=== PATIENT | female | born 1960 | race Two or more races ===

== ENCOUNTER 2023-01-15 12:56 | Inpatient (IN) | payer MEDICAID ==
[~2023-01-15] VITALS: Ht 167.6 cm; Wt 56.7 kg
[2023-01-15 13:10] VITALS: O2SAT 99
[2023-01-15 14:48] LABS: BASOPHILS % 0.3 % (0.0-2.0); EOSINOPHILS % 0.5 % (0.0-5.0); HEMATOCRIT. 38.3 % (36.0-48.0); HEMOGLOBIN. 12.2 g/dL (12.0-16.0); LYMPHOCYTES % 23.3 % (20.0-50.0); MEAN CORPUSCULAR HEMOGLOBIN 27.7 pg (28.0-32.0); MEAN CORPUSCULAR HGB CONC 31.8 g/dL (31.0-37.0); MEAN CORPUSCULAR VOLUME 87.2 fL (81.0-99.0); MEAN PLATELET VOLUME 7.6 fl (7.4-10.4); MONOCYTES % 9.2 % (2.0-8.0); NEUTROPHILS % 66.7 % (40.0-76.0); PLATELET 240 x1000/uL (130-400); RED BLOOD CELL COUNT 4.39 mill/uL (4.2-5.4); RED CELL DISTRIBUTION WIDTH 24.3 % (11.6-14.6); WHITE BLOOD COUNT 7.1 x1000/uL (4.5-11.0)
[2023-01-15 14:51] LABS: ADD RBC MORPHOLOGY YES; DIFFERENTIAL COMMENT 1
[2023-01-15 15:08] LABS: INDEX HEMOLYSI 1 (1-3); INDEX ICTERIC 1 (1-4); INDEX LIPEMIC 1 (1-3)
[2023-01-15 15:10] LABS: CHLORIDE 121 mEq/L (98-107); POTASSIUM 3.7 mEq/L (3.5-5.1); SODIUM 144 mEq/L (136-145)
[2023-01-15 15:23] LABS: ANISOCYTOSIS 4+; PLATELET ESTIMATE NORMAL
[2023-01-15 15:31] LABS: *AMPHETAMINES SCREEN URINE NEGATIVE (NEGATIVE); *BARBITURATES SCREEN URINE NEGATIVE (NEGATIVE); *BENZODIAZEPINES SCREEN URINE NEGATIVE (NEGATIVE); *COCAINE SCREEN URINE NEGATIVE (NEGATIVE); CANNABINOID URINE SCREEN NEGATIVE (NEGATIVE); ECSTASY MDMA SCREEN URINE NEGATIVE (NEGATIVE); OPIATES URINE SCREEN NEGATIVE (NEGATIVE); PHENCYCLIDINE URINE SCREEN NEGATIVE (NEGATIVE)
[2023-01-15 15:42] LABS: ACETAMINOPHEN < 2 ug/mL (10-30); ALANINE AMINOTRANSFERASE 15 IU/L (13-61); ALBUMIN 3.3 g/dL (3.4-5.0); ASPARTATE AMINOTRANSFERASE 13 IU/L (15-37); BILIRUBIN TOTAL 0.2 mg/dL (0.1-1.0); CALCIUM 9.4 mg/dL (8.5-10.1); CARBON DIOXIDE 19 mEq/L (21-32); CREATININE 0.6 mg/dL (0.6-1.3); ETHANOL BLOOD < 10 mg/dL (<10); GLUCOSE 103 mg/dL (70-105); PROTEIN TOTAL 6.3 g/dL (6.0-8.3); UREA NITROGEN BLOOD 16 mg/dL (7-21)
[2023-01-15 16:03] LABS: METHADONE URINE SCREEN INVALID (NEGATIVE)
[2023-01-15] MEDS ORDERED: SODIUM CHLORIDE 0.9% 1,000 ML IV ONE (16:45)
[2023-01-15 16:56] LABS: BG BASE EXCESS -4.7 mmol/L (-2.0-2.0); BG CARBOXYHEMOGLOBIN 0.7 % (0.5-1.5); BG DEOXYHEMOGLOBIN 1.9 % (0.0-5.0); BG HCO3 ACT 16.9 mmol/L (22.0-26.0); BG OXYGEN SATURATION 98.1 % (92.0-98.5); BG OXYHEMOGLOBIN 97.4 % (94.0-97.0); BG PCO2 22.9 mmHg (35.0-45.0); BG PH 7.487 (7.350-7.450); BG PO2 99.9 mmHg (75.0-100.0); BG SAMPLE SITE RIGHT BRACHIAL; BG TOTAL HEMOGLOBIN 12.2 g/dL (12.0-18.0); BG VENT MODE ROOM AIR
[2023-01-15] MEDS ORDERED: ONDANSETRON HCL 4MG/2ML INJ IV PRN (18:30)
[2023-01-15] MEDS ORDERED: IPRATROPIUM/ALBUTEROL 0.5-3(2.5)MG/3ML NEB HHN PRN (18:30)
[2023-01-15] MEDS ORDERED: MAGNESIUM/ALUMINUM HYDROXIDE/SIMETHICONE 30ML UDC PO PRN (18:30)
[2023-01-15] MEDS ORDERED: GUAIFENESIN 200MG/10ML SUGAR FREE UDC PO PRN (18:30)
[2023-01-15] MEDS ORDERED: DEXT 5%/0.45% NACL 1000ML 1,000 ML IV ONE (18:30)
[2023-01-15] MEDS ORDERED: DOCUSATE SODIUM 100MG CAPSULE PO PRN (18:30)
[2023-01-15] MEDS ORDERED: CLONIDINE 0.1MG TABLET PO PRN (18:30)
[2023-01-15] MEDS ORDERED: ACETAMINOPHEN 325MG TABLET PO PRN (18:30)
[2023-01-15] MEDS: PANTOPRAZOLE SODIUM 40 MG/VIAL IV SCH (19:00)
[2023-01-15] MEDS ORDERED: ENOXAPARIN 80MG/0.8ML SYR SUBCUT NR (19:00)
[2023-01-15 20:34] LABS: PROTHROMBIN TIME 11.2 sec (9.6-11.0)
[2023-01-15 20:45] LABS: TROPONIN I HIGH SENSITIVITY 5 ng/L (<54)
[2023-01-15] MEDS ORDERED: HALOPERIDOL LACTATE 5MG/ML VIAL IM NR (21:30)
[2023-01-15] MEDS: ENOXAPARIN 80MG/0.8ML SYR SUBCUT SCH (23:00)
[2023-01-16] VITALS (7 sets, daily range): BP systolic 95–139; BP diastolic 57–85; PULSE 76–83; RESP 16–19; TEMP 97.6–98.2
[2023-01-16 01:49] LABS: BG BASE EXCESS -4.9 mmol/L (-2.0-2.0); BG CARBOXYHEMOGLOBIN 0.2 % (0.5-1.5); BG DEOXYHEMOGLOBIN 4.3 % (0.0-5.0); BG FRACTION INSPIRED OXYGEN 21; BG HCO3 ACT 18.9 mmol/L (22.0-26.0); BG METHEMOGLOBIN 0.1 % (0.0-1.5); BG OXYGEN SATURATION 95.7 % (92.0-98.5); BG OXYHEMOGLOBIN 95.4 % (94.0-97.0); BG PH 7.403 (7.350-7.450); BG PO2 85.8 mmHg (75.0-100.0); BG SAMPLE SITE RIGHT RADIAL; BG TOTAL HEMOGLOBIN 11.9 g/dL (12.0-18.0); BG VENT MODE ROOM AIR
[2023-01-16 08:14] LABS: BASOPHILS % 0.5 % (0.0-2.0); EOSINOPHILS % 2.4 % (0.0-5.0); HEMOGLOBIN. 11.7 g/dL (12.0-16.0); LYMPHOCYTES % 29.1 % (20.0-50.0); MEAN CORPUSCULAR HEMOGLOBIN 27.6 pg (28.0-32.0); MEAN CORPUSCULAR HGB CONC 30.9 g/dL (31.0-37.0); MEAN CORPUSCULAR VOLUME 89.4 fL (81.0-99.0); MEAN PLATELET VOLUME 7.8 fl (7.4-10.4); MONOCYTES % 7.8 % (2.0-8.0); NEUTROPHILS % 60.2 % (40.0-76.0); PLATELET 236 x1000/uL (130-400); RED BLOOD CELL COUNT 4.25 mill/uL (4.2-5.4); RED CELL DISTRIBUTION WIDTH 24.3 % (11.6-14.6); WHITE BLOOD COUNT 4.3 x1000/uL (4.5-11.0)
[2023-01-16 08:18] LABS: DIFFERENTIAL COMMENT 1
[2023-01-16 08:19] LABS: ADD RBC MORPHOLOGY YES; CHLORIDE 119 mEq/L (98-107); INDEX HEMOLYSI 3 (1-3); INDEX ICTERIC 1 (1-4); INDEX LIPEMIC 1 (1-3); POTASSIUM 4.1 mEq/L (3.5-5.1); SODIUM 144 mEq/L (136-145)
[2023-01-16 08:37] LABS: ALANINE AMINOTRANSFERASE 12 IU/L (13-61); ALBUMIN 2.9 g/dL (3.4-5.0); ASPARTATE AMINOTRANSFERASE 19 IU/L (15-37); BILIRUBIN TOTAL 0.2 mg/dL (0.1-1.0); CALCIUM 8.8 mg/dL (8.5-10.1); CARBON DIOXIDE 21 mEq/L (21-32); CHOLESTEROL 166 mg/dL (<200); CREATININE 0.5 mg/dL (0.6-1.3); GLUCOSE 90 mg/dL (70-105); HDL CHOLESTEROL 63 mg/dL (40-59); LDL CHOLESTEROL 97 mg/dL (5-100); PROTEIN TOTAL 5.7 g/dL (6.0-8.3); T4 FREE 0.74 ng/dL (0.76-1.46); THYROID STIMULATING HORMONE 0.15 uIU/mL (0.36-3.74); TRIGLYCERIDE 60 mg/dL (0-150); UREA NITROGEN BLOOD 13 mg/dL (7-21)
[2023-01-16] MEDS: HYDROCODONE/ACETAMINOPHEN 5/325MG TABLET PO PRN ×4 (08:45→23:01)
[2023-01-16] MEDS ORDERED: NALOXONE HCL 0.4MG/ML VIAL IV PRN (10:00)
[2023-01-16] MEDS ORDERED: APIX5TAB PO (10:40)
[2023-01-16] MEDS ORDERED: IBUP-2029 PO (10:40)
[2023-01-16] MEDS ORDERED: ASPI-1160 PO (10:40)
[2023-01-16 11:06] LABS: INR 1.1; PARTIAL THROMBOPLASTIN TIME 27.6 sec (23.4-31.0); PROTHROMBIN TIME 11.5 sec (9.6-11.0)
[2023-01-16 11:30] LABS: INDEX HEMOLYSI 1 (1-3)
[2023-01-16 12:01] LABS: VITAMIN B12 SERUM 238 pg/mL (211-911)
[2023-01-16 12:20] LABS: FOLIC ACID (FOLATE) SERUM > 20.00 ng/mL (>5.38)
[2023-01-16] MEDS: ARIPIPRAZOLE 5MG TABLET PO SCH (12:25)
[2023-01-16] MEDS: ENOXAPARIN 80MG/0.8ML SYR SUBCUT SCH ×2 (12:27→21:51)
[2023-01-16 14:36] LABS: HEPATITIS B SURFACE ANTIGEN NEGATIVE
[2023-01-16 15:05] LABS: HEPATITIS C VIR.AB 0.05 INDEXVAL (0.00-0.80)
[2023-01-16] MEDS: PANTOPRAZOLE SODIUM 40 MG/VIAL IV SCH (18:18)
[2023-01-16] MEDS: LORAZEPAM 0.5MG TABLET PO PRN (21:51)
[2023-01-17 00:10] VITALS: BP 95/57; PULSE 83; RESP 19; TEMP 97.8
[2023-01-17 04:00] VITALS: BP 121/73; PULSE 78; RESP 16; TEMP 97.5
[2023-01-17] MEDS: HYDROCODONE/ACETAMINOPHEN 5/325MG TABLET PO PRN ×3 (05:39→20:13)
[2023-01-17 08:00] VITALS: BP 116/74; PULSE 74; RESP 18; TEMP 97.6
[2023-01-17] MEDS: PANTOPRAZOLE SODIUM 40 MG/VIAL IV SCH ×2 (08:40→18:17)
[2023-01-17] MEDS: LORAZEPAM 0.5MG TABLET PO PRN ×2 (08:41→18:15)
[2023-01-17] MEDS: ARIPIPRAZOLE 5MG TABLET PO SCH (08:41)
[2023-01-17] MEDS: CYANOCOBALAMIN 1000MCG TABLET PO SCH (08:41)
[2023-01-17] MEDS: ENOXAPARIN 80MG/0.8ML SYR SUBCUT SCH ×2 (10:48→22:11)
[2023-01-17 11:02] LABS: HEMATOCRIT 34.5 % (36.0-48.0); HEMOGLOBIN 10.9 g/dL (12.0-16.0); MEAN CORPUSCULAR HEMOGLOBIN 27.7 pg (28.0-32.0); MEAN CORPUSCULAR HGB CONC 31.7 g/dL (31.0-37.0); MEAN CORPUSCULAR VOLUME 87.5 fL (81.0-99.0); PLATELET 211 x1000/uL (130-400); RED BLOOD CELL COUNT 3.94 mill/uL (4.2-5.4); RED CELL DISTRIBUTION WIDTH 23.4 % (11.6-14.6); WHITE BLOOD COUNT 3.9 x1000/uL (4.5-11.0)
[2023-01-17 12:00] VITALS: BP 120/72; PULSE 84; RESP 16; TEMP 96.9
[2023-01-17 14:08] LABS: CHLORIDE 112 mEq/L (98-107); INDEX HEMOLYSI 1 (1-3); INDEX ICTERIC 1 (1-4); INDEX LIPEMIC 1 (1-3); SODIUM 139 mEq/L (136-145)
[2023-01-17 14:17] LABS: ALANINE AMINOTRANSFERASE 17 IU/L (13-61); ASPARTATE AMINOTRANSFERASE 15 IU/L (15-37); BILIRUBIN TOTAL 0.2 mg/dL (0.1-1.0); CALCIUM 8.8 mg/dL (8.5-10.1); CREATININE 0.5 mg/dL (0.6-1.3); GLUCOSE 82 mg/dL (70-105); PROTEIN TOTAL 5.9 g/dL (6.0-8.3); UREA NITROGEN BLOOD 12 mg/dL (7-21)
[2023-01-17] MEDS ORDERED: GADOTERATE MEGLUMINE 5 MMOL/10 ML VIAL IV ONE (15:49)
[2023-01-17 16:00] VITALS: BP 121/83; PULSE 79; RESP 19; TEMP 97
[2023-01-17 16:27] LABS: CARBON DIOXIDE 23 mEq/L (21-32)
[2023-01-17] MEDS: FLUOXETINE HCL 10 MG CAPSULE PO SCH (18:15)
[2023-01-17 20:00] VITALS: BP 111/68; PULSE 89; RESP 17; TEMP 97.7
[2023-01-18] VITALS: BP 121/73; PULSE 79; RESP 17; TEMP 97.7
[2023-01-18 04:00] VITALS: BP 122/55; PULSE 78; RESP 17; TEMP 97.7
[2023-01-18 05:11] LABS: FOLICLE STIMULATING HORMONE 62.8 mIU/mL (.); LUTEINIZING HORMONE 34.4 mIU/mL (.)
[2023-01-18] MEDS: CYANOCOBALAMIN 1000MCG TABLET PO SCH (07:02)
[2023-01-18 07:13] VITALS: BP 122/55; PULSE 78; RESP 17
[2023-01-18] MEDS: HYDROCODONE/ACETAMINOPHEN 5/325MG TABLET PO PRN ×2 (07:13→13:00)
[2023-01-18] MEDS ORDERED: TOPUD PO (08:06)
[2023-01-18] MEDS ORDERED: DOCU-150 PO (08:06)
[2023-01-18] MEDS ORDERED: FAMO20TA8 PO (08:06)
[2023-01-18] MEDS ORDERED: CYAN-50 PO (08:06)
[2023-01-18] MEDS ORDERED: FLUOX10 PO (08:06)
[2023-01-18] MEDS ORDERED: ABIL5 PO (08:06)
[2023-01-18] MEDS ORDERED: CHOL12509 PO (08:11)
[2023-01-18] MEDS: FLUOXETINE HCL 10 MG CAPSULE PO SCH (08:24)
[2023-01-18] MEDS: PANTOPRAZOLE SODIUM 40 MG/VIAL IV SCH (08:25)
[2023-01-18] MEDS: ARIPIPRAZOLE 5MG TABLET PO SCH (08:25)
[2023-01-18] MEDS: LORAZEPAM 0.5MG TABLET PO PRN (08:45)
[2023-01-18] MEDS ORDERED: LEVOTHYROXINE SODIUM 25MCG TABLET PO SCH (09:15)
[2023-01-18] MEDS: ENOXAPARIN 80MG/0.8ML SYR SUBCUT SCH (10:20)
[2023-01-18] MEDS ORDERED: TRAM50TA3 MT (12:36)
[2023-01-20 09:06] LABS: ANTI-PARIETAL CELL AB 1.5 Units (0.0-20.0)
== END 2023-01-18 15:00 | disposition home or self-care (01) | DRG 54 ==
LOC: ER 12:56 → MICUSO 16:59 → 7WST 01-16 09:28 → 6WST 01-17 13:27
PROVIDERS: ADMIT Hospitalist; ATTEND Hospitalist
DX: G43.909 Migraine, unspecified, not intractable, without status migrainosus (principal); E87.4 Mixed disorder of acid-base balance; R45.851 Suicidal ideations; E44.1 Mild protein-calorie malnutrition; D64.9 Anemia, unspecified; C44.612 Basal cell carcinoma of skin of right upper limb, including shoulder; D72.819 Decreased white blood cell count, unspecified; E87.8 Other disorders of electrolyte and fluid balance, not elsewhere classified; G89.29 Other chronic pain; M54.50 Low back pain, unspecified; J44.9 Chronic obstructive pulmonary disease, unspecified; F17.210 Nicotine dependence, cigarettes, uncomplicated; F32.9 Major depressive disorder, single episode, unspecified; K59.00 Constipation, unspecified; T39.095A Adverse effect of salicylates, initial encounter; F41.9 Anxiety disorder, unspecified; Z86.718 Personal history of other venous thrombosis and embolism; Z80.1 Family history of malignant neoplasm of trachea, bronchus and lung; Z79.01 Long term (current) use of anticoagulants; Z85.828 Personal history of other malignant neoplasm of skin; Z80.8 Family history of malignant neoplasm of other organs or systems; Z82.49 Family history of ischemic heart disease and other diseases of the circulatory system; Z68.20 Body mass index [BMI] 20.0-20.9, adult
CPT/HCPCS: 36415; 36600; 70553; 71045; 80053; 80061; 80305; 80307; 80320; 80329; 82306; 82375; 82533; 82607; 82746; 82805; 83001; 83002; 84146; 84305; 84439; 84443; 84481; 84484; 85025; 85027; 86340; 86376; 86803; 87340; 93005; 93306; 93970; 99291; A9577; C9113; J1630; J1650; J7030; G0480